=== PATIENT | male | born 1960 | race Caucasian/White ===

== ENCOUNTER 2017-05-03 12:25 | Emergency (ER) | payer OTHER ==
[2017-05-03 12:35] VITALS: BMI 32.8
--- NOTE | 2017-05-03 12:44 | ED PDOC ---
Upper Extremity Pain/Injury Time Seen by Provider: 05/03/17 12:42 Chief Complaint (Provider): shoulder pain History Per: Patient History/Exam Limitations: no limitations Additional Complaint(s): 57yo M in ED for eval of right shoulder injury sustained at work-while holding elevator open-strained muscle and noted pain with ROM of shoulder without radiation to remaining arm. noted pain or spasm to neck area. no head ache or vision changes. no chest pain. no weakness in arm. no previous injury Past Medical History Reviewed: Historical Data, Nursing Documentation, Vital Signs - Medical History PMH: No Chronic Diseases - Family History Family History: States: No Known Family Hx - Home Medications Home Medications: Ambulatory Orders Medication Instructions Recorded Cyclobenzaprine HCl [Flexeril] 10 mg PO Q8 #20 tab 03/07/14 Naproxen [Naprosyn] 500 mg PO BID #20 tab 03/07/14 Cyclobenzaprine [Cyclobenzaprine 10 mg PO BID #14 tab 05/03/17 HCl] Ketorolac Tromethamine [Toradol] 10 mg PO TID #20 cap 05/03/17 - Allergies Allergies/Adverse Reactions: Allergies Allergy/AdvReac Type Severity Reaction Status Date / Time No Known Allergies Allergy Verified 03/07/14 13:41 Review of Systems ROS Statement: Except As Marked, All Systems Reviewed And Found Negative Constitutional: Negative for: Fever, Chills Musculoskeletal: Positive for: Shoulder Pain Physical Exam - Reviewed Nursing Documentation Reviewed: Yes Vital Signs Reviewed: Yes - Physical Exam Appears: Positive for: Well, Non-toxic, No Acute Distress Skin: Positive for: Normal Color, Warm, DRY Cardiovascular/Chest: Positive for: Regular Rate, Rhythm Respiratory: Positive for: CNT, Normal Breath Sounds Extremity: Positive for: Other (shoulder [id number] ROM with external rotation of shoulder and extension of shoulder. neruvoasc intact. good pronation and supination ) Neurologic/Psych: Positive for: Alert, Oriented Medical Decision Making Medical Decision Making: pt does not require at this time an xray. given sling for support and tordol IM for pain control Disposition - Clinical Impression Clinical Impression: Shoulder injury - Patient ED Disposition Is Patient to be Admitted: No Counseled Patient/Family Regarding: Diagnosis, Need For Followup, Rx Given - Disposition Referrals: [facility] [place] [Outside] [facility] [Outside] Disposition: Routine/Home Disposition Time: 12:48 Condition: STABLE Prescriptions: Cyclobenzaprine [Cyclobenzaprine HCl] 10 mg PO BID #14 tab Ketorolac Tromethamine [Toradol] 10 mg PO TID #20 cap Instructions: Rotator Cuff Injury (DC)
[2017-05-03 13:17] VITALS: BP 141/91; PULSE 107; RESP 20; TEMP 98.4; O2SAT 99
== END 2017-05-03 13:20 | disposition home or self-care (01) ==
LOC: H.ER 12:25
DX: S49.92XA Unspecified injury of left shoulder and upper arm, initial encounter (principal); X50.9XXA Other and unspecified overexertion or strenuous movements or postures, initial encounter; Y99.0 Civilian activity done for income or pay
CPT/HCPCS: 96372; 99282; J1885